=== PATIENT | male | born 1980 | race African-American/Black ===

== ENCOUNTER 2019-03-02 06:50 | Emergency (ER) | payer BC, OTHER ==
[~2019-03-02] VITALS: Ht 182.9 cm; Wt 113.6 kg
[2019-03-02] MEDS ORDERED: CYCLOBENZAPRINE HCL 10 MG TABLET PO ONE (07:30)
[2019-03-02] MEDS ORDERED: LIDOCAINE 5% TRANSDERMAL PATCH TD ONE (07:30)
[2019-03-02 09:25] VITALS: BP 126/82
== END 2019-03-02 09:25 | disposition home or self-care (01) ==
LOC: EMS 06:55
DX: M54.5 Low back pain (principal)

== ENCOUNTER 2020-11-12 08:57 | Emergency (ER) | payer BC, OTHER ==
[~2020-11-12] VITALS: Ht 182.9 cm; Wt 115.9 kg
[2020-11-12] MEDS ORDERED: IBUPROFEN 600 MG TABLET PO ONE (09:45)
[2020-11-12 10:00] VITALS: BP 120/64
[2020-11-12 13:50] LABS: APPEARANCE,URINE CLEAR (CLEAR); BILIRUBIN,URINE NEGATIVE (NEGATIVE); GLUCOSE, URINE (UA) NEGATIVE (NEGATIVE); KETONES,URINE NEGATIVE (NEGATIVE); LEUKOCYTE ESTERASE ,URINE NEGATIVE (NEGATIVE); NITRATE,URINE NEGATIVE (NEGATIVE); OCCULT BLOOD,URINE NEGATIVE (NEGATIVE); PROTEIN,URINE NEGATIVE (NEGATIVE)
[2020-11-12 14:13] LABS: BACTERIA,URINE None Seen /HPF (None Seen); RBC,URINE None Seen /HPF (0-2); SQUAMOUS EPITHELIAL CELL,UR Few /LPF (None Seen); WBC,URINE 0-2 /HPF (0-5)
== END 2020-11-12 12:36 | disposition home or self-care (01) ==
LOC: EMS 09:07
DX: I86.1 Scrotal varices (principal)
CPT/HCPCS: 76870; 87491; 87591; 81001-TC; 81002-TC; Z7502; Z7610

== ENCOUNTER 2024-12-01 19:33 | Emergency (ER) | payer SELFPAY ==
[~2024-12-01] VITALS: Ht 180.3 cm; Wt 113.6 kg
[2024-12-01 19:43] VITALS: TEMP 98
[2024-12-01 21:07] LABS: ANION GAP 6 mmol/L (8-16); CALCIUM, TOTAL 8.7 mg/dL (8.8-10.5); CARBON DIOXIDE 30 mmol/L (22-29); CHLORIDE 105 mmol/L (98-107); CREATININE 1.19 mg/dL (0.60-1.30); GLOMERULAR FILTR. RATE CALC > 60 mL/min (>60); GLUCOSE,RANDOM 96 mg/dL (70-110); POTASSIUM 4.3 mmol/L (3.5-5.1); SODIUM SERUM 141 mmol/L (136-145); UREA NITROGEN, BLOOD 15 mg/dL (7-18)
[2024-12-01 21:15] LABS: TROPONIN I-HIGH SENSITIVITY Less Than 4 ng/L (<76)
[2024-12-01 21:38] LABS: B-TYPE NATRIURETIC PEPTIDE 5 pg/mL (0-100)
[2024-12-01 21:40] LABS: ALCOHOL, URINE DRUG SCREEN NEGATIVE (NEGATIVE); AMPHET/METH SCREEN,URINE NEGATIVE (NEGATIVE); BARBITURATE SCREEN, URINE NEGATIVE (NEGATIVE); BENZODIAZEPINES SCREEN,URINE NEGATIVE (NEGATIVE); CANNABINOID SCREEN,URINE POSITIVE (NEGATIVE); COCAINE SCREEN,URINE NEGATIVE (NEGATIVE); METHADONE SCREEN, URINE NEGATIVE (NEGATIVE); OPIATE SCREEN,URINE NEGATIVE (NEGATIVE); PHENCYCLIDINE SCREEN,URINE NEGATIVE (NEGATIVE)
[2024-12-01] MEDS ORDERED: IBUP-1492 PO (23:06)
[2024-12-01] MEDS ORDERED: SULF1TAB42 PO (23:06)
[2024-12-01 23:18] VITALS: BP 115/70; PULSE 72; RESP 18; O2SAT 100
== END 2024-12-01 23:19 | disposition home or self-care (01) ==
LOC: EDBD 19:33 → EMS 19:33
DX: L72.0 Epidermal cyst (principal); R07.9 Chest pain, unspecified; Z90.49 Acquired absence of other specified parts of digestive tract
CPT/HCPCS: 71045; 80048; 80307; 83880; 84484; 93005; 99285; 36415-L1; 36415-TC

== ENCOUNTER 2025-08-02 11:06 | Emergency (ER) | payer OTHER ==
[~2025-08-02] VITALS: Ht 180.3 cm; Wt 90.9 kg
[~2025-08-02 11:06] MED LIST: IBUP-1492 PO; SULF1TAB42 PO
[2025-08-02 11:16] VITALS: TEMP 97.9
[2025-08-02 11:47] LABS: PLATELET COUNT (AUTO) 232 K/uL (150-450); RED BLOOD CELL COUNT(AUTO) 4.39 MIL/uL (4.50-5.90); RED CELL DISTRIBUTION WIDTH 13.6 % (11.5-14.5); WHITE BLOOD COUNT (AUTO) 6.6 K/uL (4.5-11.0)
[2025-08-02 11:51] LABS: COVID AG,FIA SOURCE NASAL SWAB
[2025-08-02 12:06] LABS: CALCIUM, TOTAL 8.6 mg/dL (8.8-10.5); CREATININE 0.95 mg/dL (0.60-1.30); GLOMERULAR FILTR. RATE CALC > 60 mL/min (>60); GLUCOSE,RANDOM 86 mg/dL (70-110); SODIUM SERUM 139 mmol/L (136-145); UREA NITROGEN, BLOOD 16 mg/dL (7-18)
[2025-08-02 12:19] LABS: SARS-COV2 (COVID) ANTIGEN,FIA Negative (Negative)
[2025-08-02 12:38] LABS: INFLUENZA TYPE A NEGATIVE FOR TYPE A (NEGATIVE); INFLUENZA TYPE B NEGATIVE FOR TYPE B (NEGATIVE)
[2025-08-02] MEDS ORDERED: IBUP-1492 PO (13:33)
[2025-08-02] MEDS ORDERED: ACET-3385 PO (13:33)
[2025-08-02] MEDS ORDERED: ONDA-104 PO (13:33)
[2025-08-02 13:45] VITALS: BP 119/73; PULSE 74; RESP 18; O2SAT 100
[2025-08-02] MEDS: ACETAMINOPHEN 500 MG TABLET PO ONE (13:55)
== END 2025-08-02 14:00 | disposition home or self-care (01) ==
LOC: EMS 11:09
DX: R05.9 Cough, unspecified (principal); F41.9 Anxiety disorder, unspecified; Z90.49 Acquired absence of other specified parts of digestive tract; Z20.822 Contact with and (suspected) exposure to COVID-19; Z79.899 Other long term (current) drug therapy
CPT/HCPCS: 71045; 80048; 83880; 85025; 85379; 87804; 99284; 36415-L1; 36415-TC